=== PATIENT | female | born 1980 | race Caucasian/White ===

== ENCOUNTER 2017-12-25 12:14 | Emergency (ER) | payer MEDICAID, OTHER ==
[2017-12-25] MEDS: FAMOTIDINE 20 MG TAB PO (15:04)
[2017-12-25] MEDS: LIDOCAINE/MYLANTA 40 ML BTL PO (15:04)
[2017-12-25] MEDS: ACETAMINOPHEN 500 MG TAB PO (15:04)
== END 2017-12-25 16:23 | disposition home or self-care (01) ==
LOC: FTE 12:14
DX: R07.9 Chest pain, unspecified (principal); R06.02 Shortness of breath
CPT/HCPCS: 71045; 93005; 99284-25